=== PATIENT | male | born 1980 | race Caucasian/White ===

== ENCOUNTER 2024-08-12 10:03 | Emergency (ER) | payer OTHER ==
[~2024-08-12] VITALS: Ht 170.2 cm; Wt 90.7 kg
[2024-08-12 10:21] LABS: PLATELET COUNT (AUTO) 203 K/uL (150-450); RED BLOOD CELL COUNT(AUTO) 5.33 MIL/uL (4.5-6.0); RED CELL DISTRIBUTION WIDTH 13.6 % (11.5-15.0); WHITE BLOOD COUNT (AUTO) 5.5 K/uL (4.3-11.0)
[2024-08-12 10:27] LABS: CALCIUM, SERUM 8.9 mg/dL (8.5-10.1); CREATININE 1.1 mg/dL (0.6-1.3); SODIUM SERUM 132 mmol/L (136-145); UREA NITROGEN, BLOOD 16 mg/dL (7-18)
[2024-08-12] MEDS: LIDOCAINE VISCOUS 2% UD 15 ML UDC MM ONE (11:34)
[2024-08-12] MEDS: IV NS 0.9% 1,000 ML BAG IV ONE (11:35)
[2024-08-12] MEDS: FAMOTIDINE/PF INJ 20 MG/2 ML VIAL IV ONE (11:35)
[2024-08-12] MEDS: MAG HYDROX/AL HYDROX/SIMETH 30 ML UDC PO ONE (11:35)
[2024-08-12 11:37] LABS: ASPARTATE AMINOTRANSFERASE 189.0 U/L (15-37); TOTAL PROTEIN, SERUM 7.4 g/dL (6.4-8.2)
[2024-08-12] MEDS ORDERED: FAMO-131 PO (12:29)
[2024-08-12] MEDS ORDERED: ONDA4TAB5 PO (12:29)
[2024-08-12 12:36] VITALS: BP 139/90; TEMP 98.1; O2SAT 98
== END 2024-08-12 12:44 | disposition home or self-care (01) ==
LOC: ER 10:34
DX: F10.10 Alcohol abuse, uncomplicated (principal); K70.9 Alcoholic liver disease, unspecified; R07.89 Other chest pain; R10.12 Left upper quadrant pain; E11.9 Type 2 diabetes mellitus without complications; Z87.19 Personal history of other diseases of the digestive system
CPT/HCPCS: 99285; 96374; 71045; 96361; 93005 ×3; 85025; 80048; 83690; 80076; 36415; 84484 ×2; J1308; J7030